=== PATIENT | male | born 1985 | race Caucasian/White ===

== ENCOUNTER 2017-06-22 12:47 | Emergency (ER) | payer MEDICAID ==
[~2017-06-22] VITALS: Ht 162.6 cm; Wt 54.4 kg
[2017-06-22 12:50] VITALS: BP 98/59
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
[2017-06-22 14:30] VITALS: BP 99/61
[2017-06-22 15:30] VITALS: BP 98/55
[2017-06-22 17:00] VITALS: BP 109/61
--- NOTE | 2017-06-23 12:02 | Diagnostic Imaging Report ---
Indication: Chest pain Comparison: 09/07/15 A single view chest radiograph was obtained. Findings: Cardiomediastinal appearance is within normal limits for age. Pulmonary vascularity is appropriate. The diaphragmatic contour is smooth and costophrenic angles are sharp. No pleural effusions are identified. The bones are unremarkable. Impression: No acute findings
--- NOTE | 2017-06-23 17:20 | Cardiology Report ---
APPROVED REPORT EKG Measurement Heart [id number] Normal sinus rhythm Normal ECG
== END 2017-06-22 17:00 | disposition home or self-care (01) ==
LOC: EDBD 12:47 → EMR 14:56
DX: F19.10 Other psychoactive substance abuse, uncomplicated (principal); Z93.3 Colostomy status
CPT/HCPCS: 71010; 93005; 99283

== ENCOUNTER 2019-12-18 13:51 | Emergency (ER) | payer MEDICAID ==
[~2019-12-18] VITALS: Ht 177.8 cm; Wt 63.5 kg
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
[2019-12-18 14:03] VITALS: BP 110/76
[2019-12-18] MEDS ORDERED: [UNRECOGNIZED DRUG - SUPPLY] MC (14:39)
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
--- NOTE | 2019-12-18 14:52 | NUR ---
ED Nurse Note: pt colostomy bag changed.
[2019-12-18 14:53] VITALS: BP 112/80
--- NOTE | 2019-12-18 14:53 | NUR ---
ER DISCHARGE NOTE: Patient is cleared to be discharged per ERMD, pt is aox4, on room air, with stable vital signs. pt was given dc and prescription instructions, pt was able to verbalize understanding, pt id band removed without complications. pt is able to ambulate with steady gait. pt took all belongings.
== END 2019-12-18 15:00 | disposition home or self-care (01) ==
LOC: EMR 14:40
DX: K94.00 Colostomy complication, unspecified (principal)
CPT/HCPCS: 99282